=== PATIENT | male | born 1955 | race Caucasian/White ===

== ENCOUNTER 2023-01-01 07:53 | Day surgery (SDC) | payer OTHER, BC ==
[2022-12-30 14:39] VITALS: BMI 25.0
[2023-01-01 09:36] VITALS: RESP 16; TEMP 97.7
[2023-01-01 09:55] VITALS: BP 107/61; PULSE 67
== END 2023-01-01 09:45 | disposition home or self-care (01) ==
LOC: FASU-ENDO 07:53
PROVIDERS: ATTEND Internal Medicine Gastroenterology
PROC: 0DJD8ZZ Inspection of Lower Intestinal Tract, Via Natural or Artificial Opening Endoscopic (ICD-10-PCS; principal; 2023-01-01 08:55)
DX: Z12.11 Encounter for screening for malignant neoplasm of colon (principal)